=== PATIENT | male | born 1985 | race African-American/Black ===

== ENCOUNTER 2018-10-30 00:24 | Emergency (ER) | payer SELFPAY ==
[~2018-10-30] VITALS: Ht 175.3 cm; Wt 62.6 kg
[2018-10-30 00:32] VITALS: BP 152/76
--- NOTE | 2018-10-30 00:32 | NUR ---
ED Nurse Note: Patient walked into ED c/o left foot arch pain, patient states it has been an ongoing issue for 3 days now. patient is alert and oriented x4, ambulatory with a steady gait, VSS
[2018-10-30] MEDS ORDERED: IBUPROFEN600 MG ORAL (00:39)
--- NOTE | 2018-10-30 00:39 | Emergency Room Report ---
History of Present Illness General Chief Complaint: Pain Source: Patient Present Illness HPI Is a 33-year-old male with no past medical history. He presents with left foot pain. Onset for last 2 days. Pain is localized to the arch of his left foot. No trauma. No fever chills. Worse with palpation and walking. No other complaint. Pain is 8 out of 10. Allergies: Coded Allergies: No Known Allergies (Unverified , 10/30/18) Patient History Past Medical History: see triage record, old chart reviewed Past Surgical History: none Pertinent Family History: none Social History: Denies: smoking Immunizations: other Reviewed Nursing Documentation: PMH: Agreed; PSxH: Agreed Nursing Documentation-PMH Past Medical History: No Stated History Review of Systems Eye: Denies: eye pain, blurred vision ENT: Denies: ear pain, nose congestion, throat swelling Respiratory: Denies: cough, shortness of breath Cardiovascular: Denies: chest pain, palpitations Gastrointestinal: Denies: abdominal pain, diarrhea, nausea, vomiting Musculoskeletal: Reports: joint pain; Denies: back pain Skin: Denies: rash Neurological: Denies: headache, numbness Endocrine: Denies: increased thirst, increased urine Hematologic/Lymphatic: Denies: easy bruising All Other Systems: negative except mentioned in HPI Physical Exam Vital Signs Date Time Temp Pulse Resp B/P (MAP) Pulse Ox O2 Delivery O2 Flow Rate FiO2 10/30/18 00:25 99.3 105 14 145/77 94 Room Air vitals normal Sp02 EP Interpretation: reviewed, normal General Appearance: well appearing, no apparent distress, alert Head: normocephalic, atraumatic Eyes: bilateral eye PERRL, bilateral eye EOMI ENT: hearing grossly normal, normal pharynx Neck: full range of motion, supple, no meningismus Respiratory: chest non-tender, lungs clear, normal breath sounds Cardiovascular #1: regular rate, rhythm, no murmur Gastrointestinal: normal bowel sounds, non tender, no mass, no organomegaly, no bruit, non-distended Musculoskeletal: back normal, gait/station normal, normal range of motion, other - Left foot: Mild tenderness to the arch. No redness, warmth or edema. Neurologic: alert, oriented x3 Psychiatric: mood/affect normal Skin: warm/dry Medical Decision Making Diagnostic Impression: Primary Impression: Foot pain, left ER Course Patient with left foot pain. No evidence of any trauma or infected joint. No evidence of any cellulitis. Probably secondary to poor fitting shoes. We'll discharge home. Last Vital Signs Date Time Temp Pulse Resp B/P (MAP) Pulse Ox O2 Delivery O2 Flow Rate FiO2 10/30/18 00:25 99.3 105 14 145/77 94 Room Air Status: unchanged Disposition: HOME, SELF-CARE Condition: Stable Scripts Ibuprofen* (MOTRIN*) 600 Mg Tablet 600 MG ORAL THREE TIMES A DAY, #30 TAB 0 Refills Prov: Joey Johnson MD 10/30/18 Additional Instructions: Elevate foot. Warm compress to the area. Follow-up with your doctor in 7 days. Return if worse. Joey Johnson MD Oct 30, 2018 00:39
[2018-10-30 01:20] VITALS: BP 138/72
--- NOTE | 2018-10-30 01:20 | NUR ---
ER DISCHARGE NOTE: Patient is cleared to be discharged per ERMD, pt is aox4, on room air, with stable vital signs. pt was given dc and prescription instructions, pt was able to verbalize understanding, pt id band removed without complications. pt is able to ambulate with steady gait. pt took all belongings.
== END 2018-10-30 01:20 | disposition home or self-care (01) ==
LOC: EMR 00:45
DX: M79.672 Pain in left foot (principal)
CPT/HCPCS: 99282